=== PATIENT | female | born 2000 | race Caucasian/White ===

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

== ENCOUNTER → 2020-08-09 | Outpatient (REF) | payer OTHER ==
[~2020-08-09] MED LIST: IBUP-1114 PO; MAPA500T2 PO; PRENTAB9 PO
[2020-08-09 14:04] LABS: HEMATOCRIT 37.8 % (36.0-47.0); HEMOGLOBIN 12.6 g/dl (12.0-15.5); MEAN CORPUSCULAR HEMOGLOBIN 29.8 pg (27.0-33.0); MEAN CORPUSCULAR HGB CONC 33.3 g/dl (32.0-36.5); MEAN CORPUSCULAR VOLUME 89.4 fl (80.0-96.0); PLATELET COUNT, AUTOMATED 227 10^3/uL (150-450); RED BLOOD COUNT 4.23 10^6/uL (4.00-5.40); WHITE BLOOD COUNT 5.6 10^3/uL (4.0-10.0)
[2020-08-09 15:24] LABS: HEPATITIS C VIRUS ABY INDEX 0.1 INDEX (<0.8); HIV 1&2 SCREEN CENTAUR NEGATIVE (NEGATIVE)
== END ==
LOC: M PLALAB 09:35
PROVIDERS: ATTEND Advanced Practice Midwife
DX: Z34.91 Encounter for supervision of normal pregnancy, unspecified, first trimester (principal)

== ENCOUNTER → 2020-10-23 | Outpatient (REF) | payer OTHER | LOC: M PLALAB 10:42 | PROVIDERS: ATTEND Obstetrics & Gynecology | DX: Z3A.22 22 weeks gestation of pregnancy (principal); Z53.9 Procedure and treatment not carried out, unspecified reason ==

== ENCOUNTER → 2020-12-11 | Outpatient (REF) | payer OTHER ==
[2020-12-11 13:51] LABS: HEMATOCRIT 34.1 % (36.0-47.0); HEMOGLOBIN 11.4 g/dl (12.0-15.5); MEAN CORPUSCULAR HEMOGLOBIN 30.7 pg (27.0-33.0); MEAN CORPUSCULAR HGB CONC 33.4 g/dl (32.0-36.5); MEAN CORPUSCULAR VOLUME 91.9 fl (80.0-96.0); PLATELET COUNT, AUTOMATED 208 10^3/uL (150-450); RED BLOOD COUNT 3.71 10^6/uL (4.00-5.40); WHITE BLOOD COUNT 6.6 10^3/uL (4.0-10.0)
== END ==
LOC: M PLALAB 09:56
PROVIDERS: ATTEND Obstetrics & Gynecology
DX: Z3A.22 22 weeks gestation of pregnancy (principal)
CPT/HCPCS: 36415; 82950; 85027; 86850; 86900; 86901; J2790

== ENCOUNTER → 2021-01-22 | Outpatient (REF) | payer OTHER | LOC: M SFHCWAGY 13:45 | PROVIDERS: ATTEND Advanced Practice Midwife | DX: Z36.89 Encounter for other specified antenatal screening (principal); Z3A.35 35 weeks gestation of pregnancy ==

== ENCOUNTER 2021-02-18 03:29 | Inpatient (IN) | payer OTHER ==
[~2021-02-18] VITALS: Ht 172.7 cm; Wt 70.6 kg
[2021-02-18] VITALS (52 sets, daily range): BP systolic 87–138; BP diastolic 52–81
[2021-02-18 05:21] LABS: HEMOGLOBIN 12.1 g/dl (12.0-15.5); MEAN CORPUSCULAR HEMOGLOBIN 27.6 pg (27.0-33.0); MEAN CORPUSCULAR HGB CONC 32.7 g/dl (32.0-36.5); MEAN CORPUSCULAR VOLUME 84.5 fl (80.0-96.0); PLATELET COUNT, AUTOMATED 201 10^3/uL (150-450); RED BLOOD COUNT 4.38 10^6/uL (4.00-5.40); WHITE BLOOD COUNT 7.8 10^3/uL (4.0-10.0)
[2021-02-18] MEDS ORDERED: LR 1,000 ML IV ONE (05:35)
[2021-02-18] MEDS ORDERED: LR 1,000 ML IV SCH (05:35)
[2021-02-18] MEDS ORDERED: FENTANYL 2MCG/ML ROPIVACAINE 0.2% IN 0.9% NACL 100ML IVBAG As Ordered ONE (07:00)
[2021-02-18] MEDS ORDERED: FENTANYL/ROPIVACAINE/NACL BAG 100 ML EPIDURAL SCH (07:55)
[2021-02-18] MEDS ORDERED: EPIDURAL COMMENT XX SCH (07:55)
[2021-02-18] MEDS ORDERED: ONDANSETRON 4MG/2ML VIAL IV PRN (07:55)
[2021-02-18] MEDS ORDERED: diphenhydrAMINE 50MG/ML VIAL (J1200) IV PRN (07:55)
[2021-02-18] MEDS ORDERED: REFRIGERATOR IV KEYS XX PRN (07:55)
[2021-02-18] MEDS ORDERED: NALOXONE INJ 0.4MG/1ML VIAL (J2310 PER 1MG) IV PRN (07:55)
[2021-02-18] MEDS ORDERED: ePHEDrine SULFATE 25 MG/5 ML(5MG/ML) SYRINGE IV PRN (07:55)
[2021-02-18] MEDS ORDERED: LACTATED RINGER'S 1000 ML IV PRN (07:55)
[2021-02-18] MEDS ORDERED: EPIDURAL/PCA KEYS XX PRN (07:55)
--- NOTE | 2021-02-18 08:05 | HPE ---
HISTORY AND PHYSICAL DATE OF ADMISSION: 02/18/2021 HISTORY OF PRESENT ILLNESS: Pallavi is a 20-year-old female 2 para 1-0-0-1 with an EDC of 02/21/2021, EGA 39 and 4/7th weeks gestation who presented to Labor and Delivery with complaints of contractions. Upon evaluation, she was found to be 2 cm dilated, she was monitored, her contraction increased in intensity and she became 3 cm dilated. At this point, the decision was made for admission. She is receiving care at [facility]. Her record was reviewed, essentially unremarkable. Hepatitis negative. HIV negative. GC chlamydia negative. One hour sugar test was within normal limits. Her GBS is negative. Blood type is O negative. PAST MEDICAL HISTORY: Denies. PAST SURGICAL HISTORY: Denies. SOCIAL HISTORY: She denies any alcohol, drugs or significant smoking. REVIEW OF SYSTEMS: Unremarkable. MEDICATIONS: 1. vitamins. ALLERGIES: No known drug allergies. PHYSICAL EXAMINATION: On admission, HEENT grossly within normal limits. Abdomen is soft, nontender, nondistended. Extremities: No cyanosis, clubbing or edema. Vaginal exam done by RN: 3 cm dilated and 90% effaced, fetus at -3 station, in vertex position, intact. Tracing reviewed. Category 1 tracing. ASSESSMENT: Intrauterine at 39 and 4/7th weeks gestation in labor. GBS is negative. PLAN: Admit to Labor and Delivery, routine labs sent. Pain management discussed. Patient opted for an epidural. Will continue to monitor. Anticipate delivery. cc: [facility]
[2021-02-18] MEDS ORDERED: OXYTOCIN DRIP 30 UNITS in IV 1 EA IV SCH ×2 (09:45→15:50)
--- NOTE | 2021-02-18 09:45 | IPNPDOC ---
Obstetrical Progress Note Date of Service February 18, 2021 Subjective Patient reports she is comfortable with her epidural. Objective Vital Signs Date Time Temp Pulse Resp B/P (MAP) Pulse Ox O2 Delivery O2 Flow Rate FiO2 02/18/21 08:17 99 112/75 (87) 02/18/21 06:50 20 02/18/21 06:11 98.2 Assessment Heart Rate (FHR): 125 Variability: Moderate Accelerations: Positive Decelerations: None Heart Rate Tracing: Category I Tocometer Contractions: Yes Frequency: regular, every 2-5 min. Assessment and Plan Age: 20 : 2 Term: 1 Pre-term: 0 Abortions: 0 Livin EGA at Admission: 39.1 Status: Reassuring Group B Streptococcus: Negative Anticipate: Vaginal Delivery Additional Comments IV Pitocin ordered after discussing with patient. MARTA VELAZQUEZ CNM February 18, 2021 09:45
--- NOTE | 2021-02-18 14:35 | IPNPDOC ---
Obstetrical Progress Note Date of Service February 18, 2021 Subjective Patient comfortable with her epidural. Reports she feels like her "water broke." Objective Vital Signs Date Time Temp Pulse Resp B/P (MAP) Pulse Ox O2 Delivery O2 Flow Rate FiO2 02/18/21 13:39 68 106/53 (70) 02/18/21 11:00 97.9 16 Room Air Assessment Heart Rate (FHR): 140 Variability: Moderate Accelerations: Positive Decelerations: None Heart Rate Tracing: Category I Tocometer Contractions: Yes Frequency: regular Sterile Vaginal Examination Dilation: 7 cm Effacement (%): 100% Station: 0 Postion/Presentation: Cephalic presentation Assessment and Plan Status: Reassuring Group B Streptococcus: Negative Anticipate: Vaginal Delivery Additional Comments IV Pitocin is at 12 mu/min. Patient spontaneously ruptured clear fluid. Variables noted with contractions with rupture. MARTA VELAZQUEZ CNM February 18, 2021 14:35
[2021-02-18] MEDS ORDERED: CALCIUM CARBONATE 500 MG CHEW U/D PO PRN (14:40)
[2021-02-18] MEDS ORDERED: ACETAMINOPHEN TAB 650MG DOSE (2X325MG) PO PRN (15:50)
[2021-02-18] MEDS ORDERED: ANUSOL HC CREAM 30GM TOP PRN (15:50)
[2021-02-18] MEDS ORDERED: IBUPROFEN 600MG TAB PO PRN (15:50)
[2021-02-18] MEDS ORDERED: RHOGAM 300 MCG (1500 IU) INJ (J2790) IM SCH (15:50)
[2021-02-18] MEDS ORDERED: DIBUCAINE 1% OINTMENT 30GM TOP PRN (15:50)
[2021-02-18] MEDS ORDERED: DOCUSATE SODIUM 100MG CAPSULE PO PRN (15:50)
[2021-02-18] MEDS ORDERED: MEASLES,MUMPS,RUBELLA VACCINE INJ (MMR-II) (90707) SC SCH (15:50)
[2021-02-18] MEDS ORDERED: METHYLERGONOVINE MALEATE 0.2 MG TAB PO PRN (15:50)
--- NOTE | 2021-02-18 16:03 | DNPDOC ---
[facility] Delivery Note Delivery Note DATE OF DELIVERY: 02/18/21 at 1528 PREDELIVERY DIAGNOSIS: 39-4/7 weeks' gestation and active labor. POST DELIVERY DIAGNOSIS: Delivered. PROCEDURE: Spontaneous vaginal delivery. HAND COPER: Marta Polk CNM, ENZO ANESTHESIA: epidural. ESTIMATED BLOOD LOSS: 250 mL. FINDINGS: 7 pounds 11 ounce; 3480 grams; female , Score 8/9. DELIVERY SUMMARY: Pallavi is a 20-year-old female who is now a who presented to L&D in active labor. Her labor was augmented with IV Pitocin. She requested an epidural for pain management. The patient progressed to fully dilated at 1515 and pushed to a living female in the VIKKI position with restitution to ROT. The anterior shoulder delivered with ease and the corpus immediately followed. The baby was placed on the maternal abdomen active and crying with stimulation. The cord was clamped x2 after 1 minute and cut by the FOB. A 3- vessel cord was noted. The placenta delivered spontaneously and intact at 1532. Uterine hemostasis was achieved via rapid infusion of IV Pitocin and fundal massage. The vagina, cervix, and perineum was inspected and a perineal abrasion was noted and repaired with a 3.[address]-1. Mom plans to breast feed. The counts of instruments and sponges are correct. Both mom and baby are in stable condition. MARTA POLK CNM February 18, 2021 16:03
[2021-02-18] MEDS: IBUPROFEN 800 MG TAB PO PRN (16:27)
[2021-02-18] MEDS: ACETAMINOPHEN 500 MG TAB PO PRN (19:18)
[2021-02-19] MEDS: IBUPROFEN 800 MG TAB PO PRN ×2 (03:02→18:25)
[2021-02-19 06:00] VITALS: BP 113/72
[2021-02-19] MEDS: PRENATAL VITAMINS CHEWABLE TABLET PO SCH (08:51)
--- NOTE | 2021-02-19 09:20 | IPNPDOC ---
Progress Note Date of Service: February 19, 2021 Day#: 1 Progress Note SUBJECT: Pallavi is a 20-year-old female who had an uncomplicated vaginal delive ry after coming into L&D in active labor. She has been ambulating, voiding spontaneously without issue and tolerating regular diet. Breast feeding without issue. Reports she feels "great." Only reports some minor cramping that is controlled with Motrin and Tylenol. OBJECTIVE: VITAL SIGNS: Within normal limits, afebrile. Alert and oriented times three. Sitting up in bed holding and eating breakfast. Respiratory rate is regular without use of accessory muscles. Abdomen: Fundus firm at U-1. Soft, NTTP. Minimal lochia. ASSESSMENT:Day 1 PLAN: 1. Continue supportive nursing care. 2. Patient may shower today and have IV out. 3. Anticipate discharge to home tomorrow morning. VS, I&O, 24H, Fishbone Vital Signs/I&O Vital Signs Date Time Temp Pulse Resp B/P (MAP) Pulse Ox O2 Delivery O2 Flow Rate FiO2 02/19/21 06:00 98.6 70 18 113/72 (86) 98 Room Air I&O- Last 24 Hours up to 6 AM 02/19/21 06:00 Intake Total 1850 ml Output Total 1150 ml Balance 700 ml MARTA VELAZQUEZ CNM February 19, 2021 09:20
[2021-02-19] MEDS: ACETAMINOPHEN 500 MG TAB PO PRN (10:21)
[2021-02-19 12:00] VITALS: BP 106/61
[2021-02-19 18:00] VITALS: BP 105/60
[2021-02-20 06:00] VITALS: BP 109/59
[2021-02-20] MEDS: PRENATAL VITAMINS CHEWABLE TABLET PO SCH (08:04)
--- NOTE | 2021-02-20 10:04 | IPNPDOC ---
Progress Note Date of Service: February 20, 2021 Day#: 2 Progress Note SUBJECT: Pallavi is a 20-year-old female who had an uncomplicated vaginal delive ry after coming into L&D in active labor. She has been ambulating, voiding spontaneously without issue and tolerating regular diet. Breast feeding without issue. Reports she feels "great." Only reports some minor cramping that is controlled with Motrin and Tylenol. OBJECTIVE: VITAL SIGNS: Within normal limits, afebrile. Alert and oriented times three. Sitting up in bed holding and eating breakfast. Respiratory rate is regular without use of accessory muscles. Abdomen: Fundus firm at U-1. Soft, NTTP. Minimal lochia. ASSESSMENT:Day 2 PLAN: 1. Continue supportive nursing care. 2. Discharge to home this morning. Panda Dawn DO VS, I&O, 24H, Fishbonprema Vital Signs/I&O Vital Signs Date Time Temp Pulse Resp B/P (MAP) Pulse Ox O2 Delivery O2 Flow Rate FiO2 02/20/21 06:00 98.7 66 20 109/59 (76) 99 Room Air SIVA DAWN DO February 20, 2021 10:04
== END 2021-02-20 11:35 | disposition home or self-care (01) | DRG 807 ==
LOC: M LDO 03:29 → M LDI 06:38 → M OBS 17:33
PROVIDERS: ADMIT Obstetrics & Gynecology; ATTEND Advanced Practice Midwife
PROC: 10E0XZZ Delivery of Products of Conception, External Approach (ICD-10-PCS; principal; 2021-02-18)
DX: O80 Encounter for full-term uncomplicated delivery (principal); Z37.0 Single live birth; Z3A.39 39 weeks gestation of pregnancy

== ENCOUNTER → 2023-03-11 | Outpatient (REF) | payer OTHER | LOC: M SFHCWAGY 10:18 | PROVIDERS: ATTEND Nurse Practitioner Family | DX: Z11.3 Encounter for screening for infections with a predominantly sexual mode of transmission (principal) ==

== ENCOUNTER → 2023-03-30 | Outpatient (REF) | payer OTHER | LOC: M SFHCWAGY 15:20 | PROVIDERS: ATTEND Nurse Practitioner Family | DX: Z12.4 Encounter for screening for malignant neoplasm of cervix (principal) ==

== ENCOUNTER → 2024-03-03 | Outpatient (REF) | payer OTHER | LOC: M SFHCWAGY 09:53 | PROVIDERS: ATTEND Nurse Practitioner Family | DX: Z11.3 Encounter for screening for infections with a predominantly sexual mode of transmission (principal); N89.8 Other specified noninflammatory disorders of vagina ==

== ENCOUNTER → 2024-06-03 | Outpatient (CLI) | payer OTHER ==
[2024-06-03 14:50] LABS: HEMOGLOBIN 12.1 g/dl (12.0-15.5); MEAN CORPUSCULAR HGB CONC 33.6 g/dl (32.0-36.5); MEAN CORPUSCULAR VOLUME 89.3 fl (80.0-96.0); PLATELET COUNT, AUTOMATED 216 10^3/uL (150-450); RED BLOOD COUNT 4.03 10^6/uL (4.00-5.40); WHITE BLOOD COUNT 5.8 10^3/uL (4.0-10.0)
[2024-06-03 15:48] LABS: HIV 1&2 SCREEN NEGATIVE (NEGATIVE)
[2024-06-03 15:54] LABS: HEPATITIS C VIRUS ABY INDEX < 0.02 INDEX (<0.8)
[2024-06-03 16:31] LABS: GC DNA AMPLIFICATION NEGATIVE (NEGATIVE)
== END ==
LOC: M PLALAB 09:51
PROVIDERS: ATTEND Obstetrics & Gynecology
DX: Z34.81 Encounter for supervision of other normal pregnancy, first trimester (principal)

== ENCOUNTER → 2024-07-06 | Outpatient (CLI) | payer OTHER | LOC: M WHC 09:40 | PROVIDERS: ATTEND Nurse Practitioner Women's Health | DX: Z34.82 Encounter for supervision of other normal pregnancy, second trimester (principal) ==

== ENCOUNTER → 2024-08-19 | Outpatient (CLI) | payer OTHER, BC | LOC: M RAD 12:54 | PROVIDERS: ATTEND Advanced Practice Midwife | DX: Z34.82 Encounter for supervision of other normal pregnancy, second trimester (principal) ==

== ENCOUNTER → 2024-08-31 | Outpatient (CLI) | payer BC ==
[2024-08-31 15:19] LABS: HEMATOCRIT 32.8 % (36.0-47.0); HEMOGLOBIN 10.9 g/dl (12.0-15.5); MEAN CORPUSCULAR HEMOGLOBIN 30.4 pg (27.0-33.0); MEAN CORPUSCULAR HGB CONC 33.2 g/dl (32.0-36.5); MEAN CORPUSCULAR VOLUME 91.4 fl (80.0-96.0); PLATELET COUNT, AUTOMATED 203 10^3/uL (150-450); RED BLOOD COUNT 3.59 10^6/uL (4.00-5.40); WHITE BLOOD COUNT 7.4 10^3/uL (4.0-10.0)
[2024-08-31 15:21] LABS: GLUCOSE CHALLENGE TEST 1 HOUR 87 MG/DL (LESS THAN 140)
[2024-08-31 15:57] LABS: HIV 1&2 SCREEN NEGATIVE (NEGATIVE)
[2024-08-31 16:04] LABS: HEPATITIS C VIRUS ABY INDEX 0.04 INDEX (<0.8)
[2024-08-31 16:53] LABS: GC DNA AMPLIFICATION NEGATIVE (NEGATIVE)
== END ==
LOC: M PLALAB 10:00
PROVIDERS: ATTEND Advanced Practice Midwife
DX: Z34.82 Encounter for supervision of other normal pregnancy, second trimester (principal)
CPT/HCPCS: 36415; 82950; 85027; 86780; 86803; 86850; 86900; 86901; 87389; 87810; 87850; J2790

== ENCOUNTER → 2024-10-28 | Outpatient (REF) | payer BC | LOC: M SFHCWAGY 15:29 | PROVIDERS: ATTEND Specialist | DX: Z34.83 Encounter for supervision of other normal pregnancy, third trimester (principal) ==

== ENCOUNTER 2024-11-24 18:53 | Inpatient (IN) | payer BC ==
[2024-11-24] VITALS (17 sets, daily range): BP systolic 108–134; BP diastolic 61–88
[~2024-11-24] VITALS: Ht 172.7 cm; Wt 74.9 kg
[2024-11-24] MEDS ORDERED: LIDOCAINE 1% MDV 20ML VIAL INFIL PRN (19:45)
[2024-11-24] MEDS ORDERED: OXYTOCIN DRIP 30 UNITS in IV 1 EA IV SCH (19:50)
[2024-11-24 20:20] LABS: HEMATOCRIT 32.2 % (36.0-47.0); HEMOGLOBIN 10.6 g/dl (12.0-15.5); MEAN CORPUSCULAR HEMOGLOBIN 25.5 pg (27.0-33.0); MEAN CORPUSCULAR HGB CONC 32.9 g/dl (32.0-36.5); MEAN CORPUSCULAR VOLUME 77.4 fl (80.0-96.0); PLATELET COUNT, AUTOMATED 242 10^3/uL (150-450); RED BLOOD COUNT 4.16 10^6/uL (4.00-5.40); WHITE BLOOD COUNT 6.6 10^3/uL (4.0-10.0)
[2024-11-24] MEDS ORDERED: ePHEDrine SULFATE 25 MG/5 ML(5MG/ML) SYRINGE IVP PRN (21:10)
[2024-11-24] MEDS ORDERED: NALOXONE INJ 0.4MG/1ML VIAL IV PRN (21:10)
[2024-11-24] MEDS ORDERED: EPIDURAL/PCA KEYS XX PRN (21:10)
[2024-11-24] MEDS ORDERED: diphenhydrAMINE 50MG/ML VIAL IV PRN (21:10)
[2024-11-24] MEDS ORDERED: LR 500 ML IV PRN (21:10)
[2024-11-24] MEDS: FENTANYL/ROPIVACAINE/NACL BAG 100 ML EPIDURAL SCH (21:17)
[2024-11-24 21:28] LABS: HEPATITIS C VIRUS ABY INDEX 0.18 INDEX (<0.8)
[2024-11-24] MEDS: CALCIUM CARBONATE 500 MG CHEW U/D PO ONE (22:41)
[2024-11-24] MEDS: LR 1,000 ML IV SCH (22:42)
[2024-11-24] MEDS: ONDANSETRON 4MG 2ML VIAL IV PRN (23:35)
[2024-11-25] MEDS: OXYTOCIN DRIP 30 UNITS in IV 1 EA IV PRN (00:18)
[2024-11-25 00:24] VITALS: BP 105/61
[2024-11-25 00:44] VITALS: BP 119/74
[2024-11-25] MEDS ORDERED: DIBUCAINE 1% OINTMENT 30GM TOP PRN (00:45)
[2024-11-25] MEDS ORDERED: IBUPROFEN 600MG TAB PO PRN (00:45)
[2024-11-25] MEDS ORDERED: DOCUSATE SODIUM 100MG CAPSULE PO PRN (00:45)
[2024-11-25] MEDS ORDERED: METHYLERGONOVINE MALEATE 0.2 MG TAB PO PRN (00:45)
[2024-11-25 00:59] VITALS: BP 115/73
[2024-11-25 02:27] VITALS: BP 107/66; O2SAT 99
[2024-11-25 06:07] VITALS: BP 118/66; O2SAT 98
[2024-11-25] MEDS: PRENATAL VITAMINS CHEWABLE TABLET PO SCH (09:55)
[2024-11-25] MEDS: IBUPROFEN 800 MG TAB PO PRN (09:56)
[2024-11-25] MEDS: RHOGAM 300MCG (1500IU) INJ IM SCH (11:43)
[2024-11-25] MEDS: ACETAMINOPHEN 500 MG TAB PO PRN (16:29)
[2024-11-25 18:00] VITALS: BP 106/66; O2SAT 97
[2024-11-26] MEDS: ACETAMINOPHEN 325 MG TAB PO PRN (04:10)
[2024-11-26 05:45] VITALS: BP 114/53; O2SAT 96
[2024-11-27] MEDS ORDERED: MEASLES,MUMPS,RUBELLA VACCINE INJ (MMR-II) SC.IMMUN ONE (09:00)
== END 2024-11-26 12:17 | disposition home or self-care (01) | DRG 560 ==
LOC: M LDO 18:53 → M LDI 19:28 → M OBS 11-25 02:15
PROVIDERS: ADMIT Specialist; ATTEND Specialist
PROC: 10E0XZZ Delivery of Products of Conception, External Approach (ICD-10-PCS; principal; 2024-11-25)
DX: O80 Encounter for full-term uncomplicated delivery (principal); Z37.0 Single live birth; Z3A.39 39 weeks gestation of pregnancy